=== PATIENT | female | born 1995 | race Caucasian/White ===

== ENCOUNTER 2021-04-22 15:09 | Emergency (ER) | payer SELFPAY ==
[~2021-04-22] VITALS: Ht 160 cm; Wt 96.2 kg
[2021-04-22 15:17] VITALS: BP 143/92
[2021-04-22] MEDS ORDERED: OMEP20EC11 PO (16:02)
[2021-04-22] MEDS ORDERED: LIDO15SO PO (16:02)
[2021-04-22 17:14] VITALS: BP 143/92
--- NOTE | 2021-04-22 17:14 | NUR ---
NO NURSING INTERVENTIONS IMPLEMENTED. PATIENT LEFT WITHOUT D/C PAPERWORK. Patient discharged with v/s stable. Ambulatory with steady gait. All questions addressed prior to discharge. ID band removed. Patient advised to follow up with PMD. Rx of LIDOCAINE AND OMEPRAZOLE given. Patient educated on indication of medication including possible reaction and side effects. Opportunity to ask questions provided and answered.
== END 2021-04-22 17:14 | disposition home or self-care (01) ==
LOC: MED 15:09
DX: K20.80 Other esophagitis without bleeding (principal)
CPT/HCPCS: 99281; 99283